=== PATIENT | female | born 1990 | race Asian ===

== ENCOUNTER 2020-10-16 08:56 | Outpatient (REF) | payer OTHER, SELFPAY ==
[2020-10-16 09:32] LABS: COVID-19 Test Negative (Negative)
== END 2020-10-16 08:57 | disposition home or self-care (01) ==
LOC: HO.EMPCOV 08:56
PROVIDERS: PCP Internal Medicine; Visit Provider Internal Medicine
DX: Z20.828 Contact with and (suspected) exposure to other viral communicable diseases (principal)
CPT/HCPCS: 87635; C9803

== ENCOUNTER 2020-11-13 13:20 | Outpatient (REF) | payer OTHER, SELFPAY ==
[2020-11-14 12:53] LABS: C. trachomatis RNA TMA NOT DETECTED (NOT DETECTED); N. gonorrhoeae RNA TMA NOT DETECTED (NOT DETECTED)
[2020-11-18 02:32] LABS: HPV mRNA E6/E7 rflx Not Detected (Not Detected)
== END 2020-11-13 13:21 | disposition home or self-care (01) ==
LOC: HO.LAB 13:20
PROVIDERS: PCP Internal Medicine; Visit Provider Advanced Practice Midwife
DX: Z12.4 Encounter for screening for malignant neoplasm of cervix (principal); N63.0 Unspecified lump in unspecified breast
CPT/HCPCS: 36415; 87491; 87591; 87624; 88142

== ENCOUNTER 2020-12-10 09:12 | Outpatient (REF) | payer OTHER, SELFPAY ==
[2020-12-10 09:29] LABS: COVID-19 Test Negative (Negative); IDNOW Serial# 55D5AD1C
== END 2020-12-10 09:13 | disposition home or self-care (01) ==
LOC: HO.EMPCOV 09:12
PROVIDERS: Visit Provider Internal Medicine
DX: Z20.822 Contact with and (suspected) exposure to COVID-19 (principal)
CPT/HCPCS: 36415; 87635; C9803

== ENCOUNTER 2020-12-15 11:04 | Outpatient (REF) | payer OTHER, SELFPAY ==
--- NOTE | ~2020-12-15 | XR_ITS ---
EXAMINATION: XR CHEST CLINICAL INFORMATION: Chest pain COMPARISON: None TECHNIQUE: 2 views of the chest were obtained. FINDINGS: No significant abnormality is noted involving the heart, lungs, mediastinum, bony thorax or soft tissues. XR/XR chest 2V IMPRESSION: Unremarkable examination.
--- NOTE | ~2020-12-15 | MM_ITS ---
EXAMINATION: MM DIAGNOSTIC DIGITAL BREAST TOMOSYNTHESIS, BILATERAL US DIAGNOSTIC ULTRASOUND BREAST, LEFT CLINICAL INFORMATION: Palpable fullness noted 3:00-5:00 position left breast at routine clinical exam. No known family history breast cancer. Age 30. No prior breast imaging. The lifetime risk of breast cancer based on the Tyrer-Cuzick Model is 10%. COMPARISON: None (current study represents initial baseline exam). TECHNIQUE: Digital breast tomosynthesis is performed in both the craniocaudal and mediolateral oblique views along with computer-aided detection (CAD). Synthesized 2D images are generated from the tomosynthesis. Ultrasound left breast is targeted to the area of clinical concern outer and lower breast. Grayscale imaging and color Doppler are performed without and with harmonics. Patient notes no palpable concern to direct attention at time of imaging. FINDINGS: The breasts are heterogeneously dense, which may obscure small masses (ACR BI-RADS breast composition Category c). Parenchymal pattern is unremarkable. There is no mass or architectural abnormality. No abnormal calcifications. The axilla and skin contours are unremarkable. Ultrasound left breast demonstrates no cystic or solid mass, architectural abnormality, or focal duct ectasia. Results are discussed with the patient at time of visit. MM/MM tomosynthesis diagnostic BI IMPRESSION: 1. No mammographic evidence of malignancy. 2. Normal targeted left breast ultrasound. ASSESSMENT: BI-RADS 1: Negative RECOMMENDATION: 1. Patient should be managed based on the clinical impression. If clinically indicated, further evaluation may be considered with surgical consult. Decision to proceed with biopsy should be based on clinical grounds and degree of clinical concern. 2. Otherwise, routine annual screening mammography, beginning age 40, or earlier as clinical risk factors warrant. This patient's information was entered into a reminder system with a target due date for their next mammogram.
== END 2020-12-15 11:05 | disposition home or self-care (01) ==
LOC: HO.MAMMO 11:04
PROVIDERS: PCP Internal Medicine; Visit Provider Internal Medicine
DX: N63.23 Unspecified lump in the left breast, lower outer quadrant (principal); R07.9 Chest pain, unspecified
CPT/HCPCS: 71046; 76642; 77062; 77066

== ENCOUNTER → 2021-02-11 15:18 | Outpatient (BNVA) | payer OTHER, SELFPAY | PROVIDERS: Visit Provider Advanced Practice Midwife | DX: Z30.09 Encounter for other general counseling and advice on contraception (principal) | CPT/HCPCS: 81025 ==

== ENCOUNTER 2021-03-11 20:40 | Emergency (ER) | payer OTHER, SELFPAY ==
[2021-03-11 21:14] VITALS: BP 122/82; PULSE 130; RESP 18; TEMP 38.7; O2SAT 96; BMI 24.7
--- NOTE | 2021-03-11 21:47 | ED_ITS ---
HPI - Fever General Chief Complaint: Fever Stated Complaint: fever for 5 days Time Seen by Provider: 03/11/21 21:19 Source: patient Mode of arrival: ambulatory History of Present Illness HPI Narrative: 30-year-old female presents with 5 days of continued fevers and states that she was started on treatment for a UTI 3 days ago, but states that it has not appeared to be working as she states that she is now having right- sided back discomfort, with difficulty bringing her fevers down with Tylenol and states that she has had chills as well as nausea and a decreased appetite. Otherwise, patient denies sore throat/cough/shortness of breath/chest pain. Related Data Previous Rx's Medication Instructions Recorded Lactobacillus 1 cap PO .once a day 30 Days #30 12/15/20 acidophil,plantar-Bifido no.7 15 cap billion cell capsule trazodone 50 mg tablet 50 mg PO BEDTIME PRN 90 Days #90 12/15/20 tab levonorgestrel 0.15 mg-ethinyl 1 tab PO DAILY #91 ea 02/11/21 estradiol 30 mcg tablets,3 mos pack(91) phenazopyridine 200 mg tablet 200 mg PO TID 2 Days #6 tab 03/09/21 sulfamethoxazole 800 1 tab PO BID 5 Days #10 tab 03/09/21 mg-trimethoprim 160 mg tablet ciprofloxacin HCl 500 mg PO Q12H 7 Days #14 tab 03/12/21 Allergies Allergy/AdvReac Type Severity Reaction Status Date / Time No Known Allergies Allergy Verified 03/09/21 20:18 [No Known Allergies*] Review of Systems Review of Systems: Pertinent positives and negatives as stated in HPI 10 point review of systems is otherwise negative. REPLACED BY [facility] Past Medical History Source: nursing notes reviewed Medical History Amenorrhea Chest pain Conjunctivitis Hx of conjunctivitis Insomnia Surgical History H/O colonoscopy Family History Family History Father No problems noted. Mother No problems noted. Daughter No problems noted. Social History Social History Alcohol intake: never Smoking Status: Never smoker Smoked in Last 30 Days: No Use of substances other than those prescribed or required for medical reasons: No Advance Directives: No Advance Directives Information Provided: Yes Gender identity: female Physical Exam Vital Signs: Vital Signs: Last Vital Signs Temp 99.3 F 03/11/21 23:46 Pulse 106 H 03/11/21 23:46 Resp 16 03/11/21 23:46 BP 100/69 03/11/21 23:46 Pulse Ox 96 03/11/21 23:46 Body Mass Index 24.7 VITAL SIGNS: Reviewed. GENERAL: Well developed, well nourished, in no acute distress. HEAD: Normocephalic/atraumatic, EYES: PERRLA, EOMI EARS: Ext canals without abnormality, TMs non-bulging and non-erythematous NOSE: Nares patent bilateral OROPHARYNX: no oral lesions noted, posterior pharynx clear NECK: Supple, no adenopathy LUNGS: Normal breath sounds. No adventitious sounds or accessory muscle use. SpO2<96> CARDIOVASCULAR: Regular rate and rhythm without noted murmurs ABDOMEN: Soft, non-tender, non-distended with bowel sounds, right CVA tenderness SKIN: Inspection of the skin reveals no rashes NEUROLOGIC: Alert and oriented x 4. Course Course Course Narrative: 30-year-old female with history and clinical presentation consistent with likely pyelonephritis and suspect that current antibiotic regimen is not covering the inciting organism. Will switch antibiotics, provide antinausea medication, p.o. challenge as well as basic labs with urinalyses. Review of all investigations in re-evaluation findings most consistent with pyelonephritis, no nausea or vomiting noted during her stay, patient feeling much better and fever has resolved. Urinalysis is grossly positive for infection and will empirically treat her for mild pyelonephritis and she has been informed to follow up with the primary care provider. MDM - Fever Lab Data Result diagrams: 03/11/21 21:44 03/11/21 21:44 Labs: Lab Results 03/11/21 03/11/21 03/11/21 Range/Units 21:44 21:44 21:44 WBC 12.8 H (4.8-10.8) X10*3/uL RBC 4.86 (4.20-5.50) X10*6/uL Hgb 14.1 (12.0-16.0) g/dl Hct 41.0 (37-47) % MCV 84.4 (80-98) fL MCH 29.0 (27.0-33.0) pg MCHC 34.4 (31.0-35.0) g/dl RDW 12.0 (11.0-16.0) % Plt Count 285 (160-400) X10*3/uL MPV 9.7 (9.4-12.3) fL Immature Gran % (Auto) 0.2 (0.0-0.4) % Neut % (Auto) 83.8 H (45-73) % Lymph % (Auto) 7.0 L (20-40) % Antelope % (Auto) 8.8 (2-11) % Eos % (Auto) 0.0 (0-4) % Baso % (Auto) 0.2 (0-2) % Lymph # (Auto) 0.9 L (1.2-4.9) X10*3/uL Antelope # (Auto) 1.1 (0.1-1.2) X10*3/uL Eos # (Auto) 0.0 (0.0-0.4) X10*3/uL Baso # (Auto) 0.0 (0.0-0.2) X10*3/uL Abs Immat Gran (auto) 0.03 (0.00-0.03) X10*3/uL Absolute Neuts (auto) 10.7 H (2.0-8.3) X10*3/uL Absolute Nucleated RBC 0.000 (0.0-0.012) X10*3/uL Nucleated RBC % (auto) 0.0 (0.0-0.2) /100WBC Sodium 133 L (135-145) mmol/L Potassium 3.6 (3.3-5.1) mmol/L Chloride 98 (96-108) mmol/L Carbon Dioxide 22 (22-29) mmol/L Anion Gap 17 (12-20) BUN 8 L (9-16) mg/dL Creatinine 1.06 (0.5-1.4) mg/dL Estim Creat Clear Calc 66.4 Estimated GFR > 60 Random Glucose 132 H (60-115) mg/dL Lactic Acid (0.5-2.0) mmol/L Calcium 9.2 (8.4-10.2) mg/dL Total Bilirubin 0.7 (0.0-1.0) mg/dL AST 31 (5-31) U/L ALT 22 (0-31) U/L Alkaline Phosphatase 71 (39-117) U/L Total Protein 8.4 H (6.5-8.0) g/dL Albumin 4.6 (3.5-5.0) g/dL Urine Color Urine Appearance Urine pH (5.0-8.0) Ur Specific Brandywine (1.005-1.025) Urine Protein (NEG-TRACE) MG/DL Urine Glucose (UA) (NEG) MG/DL Urine Ketones (NEG) MG/DL Urine Blood (NEG) Urine Nitrite (NEG) Ur Leukocyte Esterase (NEG) Urine RBC (0) /HPF Urine WBC (0-4) /HPF Ur Squamous Epith Cells /LPF Urine Bacteria /LPF Urine Test (NEGATIVE) COVID-19 (GAGE) Negative (Negative) COVID-19 Clin Com See Note 03/11/21 03/11/21 03/11/21 Range/Units 22:19 23:28 23:28 WBC (4.8-10.8) X10*3/uL RBC (4.20-5.50) X10*6/uL Hgb (12.0-16.0) g/dl Hct (37-47) % MCV (80-98) fL MCH (27.0-33.0) pg MCHC (31.0-35.0) g/dl RDW (11.0-16.0) % Plt Count (160-400) X10*3/uL MPV (9.4-12.3) fL Immature Gran % (Auto) (0.0-0.4) % Neut % (Auto) (45-73) % Lymph % (Auto) (20-40) % Antelope % (Auto) (2-11) % Eos % (Auto) (0-4) % Baso % (Auto) (0-2) % Lymph # (Auto) (1.2-4.9) X10*3/uL Antelope # (Auto) (0.1-1.2) X10*3/uL Eos # (Auto) (0.0-0.4) X10*3/uL Baso # (Auto) (0.0-0.2) X10*3/uL Abs Immat Gran (auto) (0.00-0.03) X10*3/uL Absolute Neuts (auto) (2.0-8.3) X10*3/uL Absolute Nucleated RBC (0.0-0.012) X10*3/uL Nucleated RBC % (auto) (0.0-0.2) /100WBC Sodium (135-145) mmol/L Potassium (3.3-5.1) mmol/L Chloride (96-108) mmol/L Carbon Dioxide (22-29) mmol/L Anion Gap (12-20) BUN (9-16) mg/dL Creatinine (0.5-1.4) mg/dL Estim Creat Clear Calc Estimated GFR Random Glucose (60-115) mg/dL Lactic Acid 1.2 (0.5-2.0) mmol/L Calcium (8.4-10.2) mg/dL Total Bilirubin (0.0-1.0) mg/dL AST (5-31) U/L ALT (0-31) U/L Alkaline Phosphatase (39-117) U/L Total Protein (6.5-8.0) g/dL Albumin (3.5-5.0) g/dL Urine Color ROASLIO Urine Appearance HAZY Urine pH 6.5 (5.0-8.0) Ur Specific Brandywine 1.020 (1.005-1.025) Urine Protein 2+ H (NEG-TRACE) MG/DL Urine Glucose (UA) NEG (NEG) MG/DL Urine Ketones 5 (NEG) MG/DL Urine Blood TRACE (NEG) Urine Nitrite POS H (NEG) Ur Leukocyte Esterase 2+ H (NEG) Urine RBC 5-9 H (0) /HPF Urine WBC 50-75 H (0-4) /HPF Ur Squamous Epith Cells 1+ /LPF Urine Bacteria 4+ /LPF Urine Test NEGATIVE (NEGATIVE) COVID-19 (GAGE) (Negative) COVID-19 Clin Com Discharge Plan Discharge Clinical Impression: Pyelonephritis Patient Disposition: Home, Self-Care Instructions: Urinary Tract Infection in Women (ED), Kidney Infection (ED) Additional Instructions: 1. Tylenol 1000 mg, orally, every 6 hours as needed for temperatures greater than 100.4. Do not exceed 4000 mg within 24 hours. 2. Ibuprofen 400 mg, orally with milk or food, every 6 hours as needed for temperatures greater than 100.4. 3. STOP taking sulfamethoxazole trimethoprim (Bactrim ds). 4. START taking ciprofloxacin as directed on the prescription. CAUTION: This m edication may affect your control so exercise additional precautions for control. 5. Continue to drink plenty of water and your appetite should improve. 6. Follow-up with your primary care provider in the next 1-2 days for re- evaluation and follow-up on the urine culture from your ER visit today. Do not hesitate to return to the emergency room for any acute worsening of your symptoms. Prescriptions: New ciprofloxacin HCl 500 mg tablet 500 mg PO Q12H 7 Days Qty: 14 RF: 0 No Action up4 Probiotics Adult 15 billion cell capsule 1 cap PO .once a day 30 Days Qty: 30 RF: 3 trazodone 50 mg tablet 50 mg PO BEDTIME PRN (Reason: sleep) 90 Days Qty: 90 RF: 1 sulfamethoxazole-trimethoprim [Bactrim DS] 800-160 mg tablet 1 tab PO BID 5 Days Qty: 10 RF: 0 phenazopyridine [Pyridium] 200 mg tablet 200 mg PO TID 2 Days Qty: 6 RF: 0 levonorgestrel-ethinyl estrad 0.15 mg-30 mcg (91) tablets,dose pack,3 month 1 tab PO DAILY Qty: 91 RF: 4 Referrals: Physician,Unknown [Primary Care Provider] - 2 days
[2021-03-11 21:57] LABS: MANUAL DIFF FLAG NO
[2021-03-11 22:01] LABS: Basophils Percent Auto 0.2 % (0-2); Hemoglobin 14.1 g/dl (12.0-16.0); Imm Gran Abs Auto 0.03 X10*3/uL (0.00-0.03); Imm Gran Pct Auto 0.2 % (0.0-0.4); Lymphocytes Absolute Auto 0.9 X10*3/uL (1.2-4.9); Mean Corpuscular HGB Conc 34.4 g/dl (31.0-35.0); Mean Corpuscular Volume 84.4 fL (80-98); Mean Platelet Volume 9.7 fL (9.4-12.3); Monocytes Absolute Auto 1.1 X10*3/uL (0.1-1.2); Monocytes Percent Auto 8.8 % (2-11); Neutrophils Absolute Auto 10.7 X10*3/uL (2.0-8.3); Neutrophils Percent Auto 83.8 % (45-73); Platelet Count 285 X10*3/uL (160-400); Red Blood Count 4.86 X10*6/uL (4.20-5.50); White Blood Count 12.8 X10*3/uL (4.8-10.8)
[2021-03-11 22:15] LABS: COVID-19 Test Negative (Negative); IDNOW Serial# 08D9AD1C
[2021-03-11 22:22] LABS: Alanine Aminotransferase 22 U/L (0-31); Albumin Level 4.6 g/dL (3.5-5.0); Alkaline Phosphatase 71 U/L (39-117); Anion Gap 17 (12-20); Aspartate Amino Transferase 31 U/L (5-31); Bilirubin Total 0.7 mg/dL (0.0-1.0); Blood Urea Nitrogen 8 mg/dL (9-16); Calcium 9.2 mg/dL (8.4-10.2); Carbon Dioxide 22 mmol/L (22-29); Chloride 98 mmol/L (96-108); Creatinine Clr Calc Pharmacy 66.4; Estimated Glomerular Filt Rate > 60; Glucose Random 132 mg/dL (60-115); Potassium 3.6 mmol/L (3.3-5.1); Sodium 133 mmol/L (135-145); Total Protein 8.4 g/dL (6.5-8.0)
[2021-03-11] MEDS: Acetaminophen 325 MG TABLET 975 MG PO (22:31)
[2021-03-11] MEDS: levoFLOXacin 500 MG TABLET PO (22:32)
[2021-03-11 22:47] LABS: Lactic Acid 1.2 mmol/L (0.5-2.0)
[2021-03-11 23:26] VITALS: BP 118/65; PULSE 112; RESP 18; TEMP 37.4; O2SAT 96
[2021-03-11 23:35] LABS: Appearance Urine HAZY; Color Urine AMBER; Glucose Urine UA NEG (NEG); Leukocyte Esterase Urine 2+ (NEG); Nitrite Urine POS (NEG); PH 6.5 (5.0-8.0); UACC Culture Trigger YES; Urine Blood TRACE (NEG); Urine Ketones 5 MG/DL (NEG); Urine Protein 2+ MG/DL (NEG-TRACE)
[2021-03-11 23:38] LABS: UPreg QC Valid YES; Urine Pregnancy NEGATIVE (NEGATIVE)
[2021-03-11 23:40] LABS: Bacteria Urine 4+ /LPF; Squamous Epithelial Cell Urine 1+ /LPF; WBC Urine 50-75 /HPF (0-4)
[2021-03-11 23:46] VITALS: BP 100/69; PULSE 106; RESP 16; TEMP 37.4; O2SAT 96
== END 2021-03-12 00:34 | disposition home or self-care (01) ==
PROVIDERS: Emergency Provider Student in an Organized Health Care Education/Training Program
DX: N12 Tubulo-interstitial nephritis, not specified as acute or chronic (principal); R50.9 Fever, unspecified; Z20.822 Contact with and (suspected) exposure to COVID-19; Z79.899 Other long term (current) drug therapy
CPT/HCPCS: 36415; 80053; 81001; 81003; 81025; 83605; 85025; 87040; 87086; 87088; 87186; 87635; 99284

== ENCOUNTER 2021-12-22 10:31 | Outpatient (REF) | payer OTHER, SELFPAY ==
[2021-12-22 10:48] LABS: MANUAL DIFF FLAG NO
[2021-12-22 11:26] LABS: Basophils Percent Auto 0.7 % (0-2); Eosinophils Absolute Auto 0.1 X10*3/uL (0.0-0.4); Eosinophils Percent Auto 1.5 % (0-4); Hematocrit 38.5 % (37.0-47.0); Imm Gran Abs Auto 0.01 X10*3/uL (0.00-0.03); Imm Gran Pct Auto 0.2 % (0.0-0.4); Lymphocytes Absolute Auto 1.5 X10*3/uL (1.2-4.9); Lymphocytes Percent Auto 26.9 % (20-40); Mean Corpuscular HGB Conc 33.8 g/dl (31.0-35.0); Mean Corpuscular Hemoglobin 29.8 pg (27.0-33.0); Mean Corpuscular Volume 88.3 fL (80.0-98.0); Mean Platelet Volume 10.2 fL (9.4-12.3); Monocytes Absolute Auto 0.3 X10*3/uL (0.1-1.2); Monocytes Percent Auto 4.6 % (2-11); Neutrophils Absolute Auto 3.6 x10*3/uL (2.0-8.3); Neutrophils Percent Auto 66.1 % (45-73); Platelet Count 427 X10*3/uL (160-400); Red Blood Count 4.36 X10*6/uL (4.20-5.50); Red Cell Distribution Width 13.2 % (11.0-16.0); White Blood Count 5.4 X10*3/uL (4.8-10.8)
[2021-12-22 11:59] LABS: Alanine Aminotransferase 11 U/L (0-31); Albumin Level 4.6 g/dL (3.5-5.0); Alkaline Phosphatase 54 U/L (39-117); Anion Gap 13 (12-20); Aspartate Amino Transferase 13 U/L (5-31); Bilirubin Total 0.7 mg/dL (0.0-1.0); Blood Urea Nitrogen 10 mg/dL (9-16); Calcium 9.8 mg/dL (8.4-10.2); Carbon Dioxide 25 mmol/L (22-29); Chloride 105 mmol/L (96-108); Cholesterol 214 mg/dL; Estimated Glomerular Filt Rate > 60; Glucose Fasting 94 mg/dL (60-99); HDL Cholesterol 36 mg/dL; LDL Cholesterol Calculated 157 mg/dl; Potassium 4.3 mmol/L (3.3-5.1); Sodium 139 mmol/L (135-145); Triglycerides 107 mg/dL
== END 2021-12-22 10:32 | disposition home or self-care (01) ==
LOC: HO.LAB 10:31
PROVIDERS: PCP Internal Medicine; Visit Provider Internal Medicine
DX: Z00.00 Encounter for general adult medical examination without abnormal findings (principal); E78.5 Hyperlipidemia, unspecified; D64.9 Anemia, unspecified; R63.4 Abnormal weight loss
CPT/HCPCS: 36415; 80053; 80061; 84443; 85025

== ENCOUNTER 2022-02-03 11:03 | Outpatient (REF) | payer OTHER, SELFPAY ==
[2022-02-03 12:28] LABS: Appearance Urine CLEAR; Color Urine YELLOW; Glucose Urine UA NEG (NEG); Leukocyte Esterase Urine NEG (NEG); Nitrite Urine NEG (NEG); PH 5.5 (5.0-8.0); Specific Gravity - Urine >= 1.030 (1.005-1.025); Urine Blood NEG (NEG); Urine Ketones NEG (NEG); Urine Protein NEG (NEG-TRACE)
== END 2022-02-03 11:04 | disposition home or self-care (01) ==
LOC: HO.LAB 11:03
PROVIDERS: PCP Internal Medicine; Visit Provider Internal Medicine
DX: R30.0 Dysuria (principal)
CPT/HCPCS: 81003

== ENCOUNTER 2022-05-21 11:52 | Outpatient (REF) | payer OTHER, SELFPAY ==
[2022-05-22 14:54] LABS: BV Int Neg Control Negative (Negative); BV Int Pos Control Positive (Positive)
[2022-05-22 16:50] LABS: CT PCR NOT DETECTED (Not Detect.); NG PCR NOT DETECTED (Not Detect.)
[2022-05-28 09:07] LABS: HPV mRNA E6/E7 rflx Not Detected (Not Detected)
== END 2022-05-21 11:53 | disposition home or self-care (01) ==
LOC: HO.LAB 11:52
PROVIDERS: Visit Provider Advanced Practice Midwife
DX: Z01.419 Encounter for gynecological examination (general) (routine) without abnormal findings (principal); Z11.3 Encounter for screening for infections with a predominantly sexual mode of transmission; Z11.51 Encounter for screening for human papillomavirus (HPV)
CPT/HCPCS: 87480; 87491; 87510; 87591; 87624; 87660; 88142

== ENCOUNTER 2022-12-29 08:47 | Outpatient (REF) | payer OTHER, SELFPAY ==
[2022-12-29 10:40] LABS: Alanine Aminotransferase 13 U/L (0-31); Albumin Level 4.4 g/dL (3.5-5.0); Alkaline Phosphatase 48 U/L (39-117); Anion Gap 13 (12-20); Aspartate Amino Transferase 13 U/L (5-31); Bilirubin Total 0.7 mg/dL (0.0-1.0); Blood Urea Nitrogen 12 mg/dL (9-16); Calcium 9.6 mg/dL (8.4-10.2); Carbon Dioxide 22 mmol/L (22-29); Chloride 109 mmol/L (96-108); Cholesterol 192 mg/dL; Estimated Glomerular Filt Rate > 60; Glucose Fasting 90 mg/dL (60-99); HDL Cholesterol 43 mg/dL; LDL Cholesterol Calculated 124 mg/dl; Potassium 4.2 mmol/L (3.3-5.1); Sodium 140 mmol/L (135-145); Total Protein 7.3 g/dL (6.5-8.0); Triglycerides 127 mg/dL
[2022-12-29 10:59] LABS: Thyroid Stimulating Hormone 1.09 uIU/mL (0.32-4.0)
== END 2022-12-29 08:48 | disposition home or self-care (01) ==
LOC: HO.LAB 08:47
PROVIDERS: PCP Internal Medicine; Visit Provider Internal Medicine
DX: Z00.00 Encounter for general adult medical examination without abnormal findings (principal); E66.3 Overweight; E78.5 Hyperlipidemia, unspecified
CPT/HCPCS: 36415; 80053; 80061; 84443

== ENCOUNTER 2023-01-28 14:52 | Outpatient (REF) | payer OTHER, SELFPAY ==
--- NOTE | ~2023-01-28 | XR_ITS ---
EXAMINATION: XR KNEE, LEFT CLINICAL INFORMATION: Pain. COMPARISON: None available. TECHNIQUE: AP and lateral views of the left knee. FINDINGS: Bones and soft tissues are normal. No fracture or joint effusion. Alignment is anatomic. Joint spaces are well maintained. No abnormal soft tissue calcification. XR/XR knee LT 2V IMPRESSION: Normal left knee.
== END 2023-01-28 14:53 | disposition home or self-care (01) ==
LOC: HO.LAB 14:52
PROVIDERS: PCP Internal Medicine; Visit Provider Internal Medicine
DX: M25.562 Pain in left knee (principal)
CPT/HCPCS: 73560

== ENCOUNTER 2023-02-04 05:30 | Outpatient (REF) | payer OTHER, SELFPAY ==
--- NOTE | ~2023-02-04 | XR_ITS ---
EXAMINATION: XR KNEE AP STANDING XR KNEE, LEFT AXIAL CLINICAL INFORMATION: Pain. COMPARISON: Left knee dated 02/07/2023. TECHNIQUE: AP bilateral standing view of the knees was obtained. An axial view of the left knee was obtained. FINDINGS: Bones and soft tissues are normal. No fracture or joint effusion. Alignment is anatomic. Joint spaces are well maintained. No abnormal soft tissue calcification. XR/XR knee standing BI IMPRESSION: Normal knees.
--- NOTE | ~2023-02-04 | XR_ITS ---
EXAMINATION: XR KNEE AP STANDING XR KNEE, LEFT AXIAL CLINICAL INFORMATION: Pain. COMPARISON: Left knee dated 02/07/2023. TECHNIQUE: AP bilateral standing view of the knees was obtained. An axial view of the left knee was obtained. FINDINGS: Bones and soft tissues are normal. No fracture or joint effusion. Alignment is anatomic. Joint spaces are well maintained. No abnormal soft tissue calcification. XR/XR knee LT 1V IMPRESSION: Normal knees.
== END 2023-02-04 05:31 | disposition home or self-care (01) ==
LOC: HO.HOSX 05:30
PROVIDERS: Visit Provider Physician Assistant
DX: M94.262 Chondromalacia, left knee (principal); M23.92 Unspecified internal derangement of left knee; M25.561 Pain in right knee; Z79.899 Other long term (current) drug therapy
CPT/HCPCS: 73560; 73565

== ENCOUNTER 2023-02-28 12:41 | Outpatient (REF) | payer OTHER, SELFPAY ==
--- NOTE | ~2023-02-28 | MR_ITS ---
EXAMINATION: MR KNEE WITHOUT CONTRAST, LEFT CLINICAL INFORMATION: Chondromalacia, left knee. Internal derangement. COMPARISON: None available. TECHNIQUE: MRI of the knee without contrast was performed using routine sequences on a high-field scanner. FINDINGS: MENISCI: Medial Meniscus: Intact Lateral Meniscus: Intact LIGAMENTS: Cruciate: Intact Collateral: Intact EXTENSOR MECHANISM: Quadriceps and patellar tendons are intact. Surrounding fat pads are normal. Retinacula are intact. Mild edema signal is evident within the quadriceps fat pad and along the medial, odd facet of the patella. ARTICULAR CARTILAGE/BONE: Patellofemoral Compartment: Articular cartilage appears well-preserved. Normal trochlear morphology. There is a plica crossing the medial trochlear facet measuring 3 mm in thickness without significant surrounding soft tissue edema or underlying chondromalacia. Medial Compartment: Normal Lateral Compartment: Normal JOINT FLUID AND BURSAE: Trace joint fluid, within normal limits. No fluid within the Reyes's cyst. MR/MR knee LT wo con IMPRESSION: 1. A borderline thickened medial patellar plica covers the superior aspect of the medial trochlear facet. No surrounding soft tissue edema signal or appreciable underlying chondromalacia to confirm plica syndrome. 2. Mild edema signal within the quadriceps fat pad. This is relatively mild and likely subclinical, though can be associated with quadriceps fat pad impingement. 3. Otherwise unremarkable MRI of the knee. Intact menisci. No appreciable chondromalacia.
== END 2023-02-28 12:42 | disposition home or self-care (01) ==
LOC: HO.MRI 12:41
PROVIDERS: PCP Internal Medicine; Visit Provider Physician Assistant
DX: M23.92 Unspecified internal derangement of left knee (principal); M94.262 Chondromalacia, left knee
CPT/HCPCS: 73721

== ENCOUNTER → 2023-03-14 12:18 | Outpatient (BNVA) | payer OTHER, SELFPAY | PROVIDERS: PCP Internal Medicine; Visit Provider Physician Assistant ==

== ENCOUNTER 2023-03-22 15:00 | Outpatient (RCR) | payer OTHER, SELFPAY ==
--- NOTE | 2023-02-18 09:04 | MHC.PT.EP ---
[facility] [place] Office [place] Office [place] Office [address] Jose Ramon Dominguez [address] [phone] F: [phone] F: [phone] F: [phone] F: [phone] Physical Therapy Plan of Care Date of Evaluation: Date of Surgery: NA Diagnosis: L KNEE CHONDROMALACIA, L KNEE INTERNAL DERANGEMENT Assessment: Pt IS 32 YO F REFERRED TO PT FROM [facility]THO ([facility]) WITH CHONDROMALACIA PATELLA/INTERNAL DERANGEMENT L KNEE. PRESENTS WITH LIMITED L KNEE FLEXION AND L LE WEAKNESS WITH C/O PAIN AND LIMITED STAIR NEGOTIATION. SHOULD BENEFIT FROM PT TO ADDRESS THESE ISSUES Frequency and Duration: The patient will be seen 2X/WK X 4 WKS Short Term Goals: 1. INCREASED AWARENESS KNEE CARE 2. L KNEE FLEXION TO 120 3. IMPROVED STAIR NEGOTIATION REPORTED Shipping Inspector Goals: 1. L KNEE ROM 0-130 2. I HEP WITH DC EX PLAN 3. DECREASED L KNEE PAIN AT LEAST 50% WITH ADLS 4. IMPROVED LEFI (55/80 SOC) Treatment Plan: Modalities to reduce pain, spasms and effusion. Manual therapy to restore motion and function. Therapeutic exercise to improve strength and flexibility. Neuromuscular re-education for posture and balance. Therapeutic activities to return to functional activities of daily living. Electronically signed by: MOR NOEL PT Please sign and return to therapist. Thank you for your referral.
--- NOTE | 2023-03-22 16:11 | MHC.PT.DC ---
[facility] [place] Office [place] Office [place] Office [address] Jose Ramon Dominguez 140 [facility] [phone] F: [phone] F: [phone] F: [phone] F: [phone] Physical Therapy Discharge Report Diagnosis: CHONDROMALACIA Date of Surgery: NA Date of Evaluation: 02/16/23 Date of Discharge: 03/22/23 Treatments to Date: 5 Cancellations to Date: No Shows to Date: Discharge Status: Achieved Goals Improved Function Independent with HEP Discharge Summary: HAS MET PT GOALS Electronically signed by: MOR NOEL PT Please sign and return to therapist. Thank you for your referral.
== END 2023-03-22 16:12 | disposition home or self-care (01) ==
LOC: HO.PT 15:00
PROVIDERS: PCP Internal Medicine; Visit Provider Physician Assistant
DX: M25.562 Pain in left knee (principal)
CPT/HCPCS: 97110; 97140; 97161; 97530

== ENCOUNTER → 2023-04-15 14:39 | Outpatient (BNVA) | payer OTHER, SELFPAY | PROVIDERS: PCP Internal Medicine; Visit Provider Nurse Practitioner Family ==

== ENCOUNTER 2023-05-11 14:57 | Outpatient (REF) | payer OTHER, SELFPAY | END 2023-05-11 14:58 | disposition home or self-care (01) | LOC: HO.MRI 14:57 | PROVIDERS: Visit Provider Nurse Practitioner Family | DX: R51.9 Headache, unspecified (principal); R20.2 Paresthesia of skin | CPT/HCPCS: 70551 ==

== ENCOUNTER → 2023-05-16 13:50 | Outpatient (REF) | payer OTHER, SELFPAY | LOC: HO.SL 13:50 | PROVIDERS: PCP Internal Medicine; Visit Provider Nurse Practitioner Family | DX: G47.9 Sleep disorder, unspecified (principal); R06.83 Snoring; G47.19 Other hypersomnia | CPT/HCPCS: 95806 ==

== ENCOUNTER → 2023-05-16 14:02 | Outpatient (BNV) | payer OTHER, SELFPAY | PROVIDERS: PCP Internal Medicine; Visit Provider Psychiatry & Neurology Neurology | DX: R06.83 Snoring (principal) | CPT/HCPCS: 95806 ==

== ENCOUNTER 2023-06-14 13:14 | Outpatient (AMB) | payer OTHER, SELFPAY ==
--- NOTE | 2023-06-14 13:36 | A.OFFVIS_ITS ---
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 Intake Note: concerns with weight gain Artificial Plastic Eye Maker Required: No Information Interpreted: non-clinical & clinical Seafood Preparer: Seafood Preparer Present (Michael) Allergies environmental allergies Allergy (Unknown, Verified 06/14/23 13:41) Unknown Medication List - Last Reconciled 06/14/23 by Shannon Carrion CNM alum-mag hydroxide-simeth 400-400-40 mg/5 mL (Maalox Maximum Strength) 10 mL PO TID PRN 7 days levonorgestrel-ethinyl estrad 0.15 mg-30 mcg (91) 1 tab PO DAILY naproxen 500 mg PO BID omeprazole 20 mg PO DAILY 14 days rizatriptan 5 - 10 mg (0.5 - 1 x 10 mg) PO Q2H PRN 21 days Is last menstrual period known: No (not sure) Post menopausal: No HPI 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 she is on the control pills that a lower to have a period every 3 months and they are working well for her. She wants to stay on them she is not worried about STDs but is open to testing.. [facility] [place] Medical History Amenorrhea Chest pain Concern about STD in female without diagnosis Conjunctivitis Constipation by delayed colonic transit Dysuria CELIA (generalized anxiety disorder) Hx of conjunctivitis Insomnia Moderate recurrent major depression Physical exam Pure hypercholesterolemia Sore throat Weight loss Surgical History H/O colonoscopy Family History Father No problems noted. Mother No problems noted. Daughter No problems noted. Social History (Reviewed 06/14/23 @ 13:42 by NOA Kaplan Housing: Apartment Alcohol intake: never Patient Tobacco Use Status: Never used Tobacco e-Cigarette/Vaping Use: Never Used Second Hand Smoke Exposure: No service: No Current occupational status: unemployed Current occupational exposures/hazards: No Gender identity: Female Cognitive needs: No Hearing needs: No Vision needs: Yes (glasses) Female Reproductive History Menstrual Age of Menarche: 11 Duration of menses: 3-5 days control method: pills Total pregnancies: 1 Full term: 1 Number of Living Children: 1 Date of last pap smear: 05/25/22 (negative) Physical Exam Vital Signs: Last Vital Signs BP 116/70 06/14/23 13:39 BMI result Body Mass Index 28.3 Const General: healthy appearing, comfortable, no acute distress, well developed and alert Nutritional Appearance: average body habitus Orientation/consciousness: patient oriented x3 Limitations: no limitations HEENT Head: Yes normocephalic Neck Neck: Yes normal visual inspection Chest Chest palpation & inspection: normal inspection of the chest Breast/axilla inspection: normal inspection of the breasts and normal inspection of the axillae Breast/axilla palpation: normal palpation of the breasts and normal palpation of the axillae Resp Effort & Inspection: normal respiratory effort GI Inspection: Yes normal to inspection, No Abdominal wall edema and No distended Palpation (GI): Soft to palpation and nontender Other: cervix does appear scarred as if status post LEEP. Confirmed with patient she has never had a procedure on her cervix. She delivered vaginally 8 years ago at [facility] and she does tell me it was of long labor and she did push for a long time last year's Pap was negative I am probably seeing the effects of of cervical laceration consistent with delivery. General: Yes bladder normal to palpation External Female Exam: normal external appearance and normal appearance of the urethra Speculum Exam - Vagina: normal appearance of the vagina, normal palpation and normal vaginal discharge Speculum Exam - Cervix: normal appearance of the cervix, normal palpation and nontender Bimanual exam- vagina & uterus: normal bimanual exam, normal palpation, uterine size normal, bladder normal to palpation, consistency normal, normal palpation, uterine mobility normal, uterine shape normal, No Cervical tenderness present, non-tender and no cervical motion tenderness Bimanual Exam- Adnexa, other: normal adnexae, no masses, normal and No adnexal tenderness Neuro General: patient oriented x3 Results Reviewed Results Reviewed: Name:?Shannon Kim Age/Sex: 31/F Attending: Shannon Carrion CNM : 1990 Submitted by: Shannon Carrion CNM Copies to: MR #: [id number] ? Status: DEP REF Collected: 05/21/22 Location: .LAB Received: 05/25/22 Interpretation Satisfactory for evaluation. Negative for intraepithelial lesion or malignancy. HPV mRNA E6/E7:? NOT DETECTED This assay detects E6/E7 viral messenger RNA (mRNA) from 14 high-risk HPV types (16, 18, 31, 33, 35, 39, 45, 51, 52, 56, 58, 59, 66, 68) HPV testing performed by [facility], [place], [place].? See reference laboratory portion of the EMR for entire report. Clinical Information LMP: 05/12/22 Previous PAP test: 11/14/20, WNL Material Received ThinPrep-Cervical Electronically Signed By: Shanti Cali ? 05/31/22 1408 The Pap Test is a screening procedure with the inherent possibility of both false negative and false positive results.? Results should be interpreted in the context of historic and current clinical find Assessment & Plan Assessment & Plan (1) Cervical cancer screening: Comment: 11/13/2020 Pap equals negative with negative HPV however cervix on 716 22 either with marked ectropion or status post LEEP patient says she does not remember if she had any procedure during exams in [place]. So Pap done.= neg w neg HPV. Code(s): Z12.4 - Encounter for screening for malignant neoplasm of cervix (2) Well woman exam with routine gynecological exam: Code(s): Z01.419 - Encounter for gynecological examination (general) (routine) without abnormal findings (3) Counseling for control, oral contraceptives: Code(s): Z30.09 - Encounter for other general counseling and advice on contraception (4) Migraine with aura: Comment: flashing lights, tingling in fingers and feet. 06/14/2023 discussed with the patient immediately after the visit when this was noted in the chart. She is not clear what an aura is I asked her to discuss with Neurology was sent when she sees them next month and if they recommend stopping the OCPs ( combination) then she will call here and we will come up with another contraceptive plan for her. she does not perceive a connection between the headaches and the control pills. Code(s): G43.109 - Migraine with aura, not intractable, without status migrainosus Plan -----Discussed in this visit the following: healthy balanced diet, regular and consistent exercise, getting recommended health screens, doing the best she can for her particular health concerns, kegel exercises, pap smear screening and followup recommendations, mammography screening and SBE, normal changes in cycles in her life stage--- . reviewed weight gain and how choice of snacks during the day can contribute to weight gain and role of carbs versus protein snacks. Also discussed recommended exercise. Also discussed how happy she is on the pills she does like the pills and she is doing fine with them and not having any problems at all discussed that sometimes breakthrough bleeding can occur her residential through a 3 month pill pack when somebody is been on them for a while and to be ready if that happens. After the visit noted that further down in her problem list there was an entry for migraine with aura. call the patient to I just left the office and inquired about this and she did not know what an aura was and I explained it and ask her to discuss this further with Neurology and if she needs to stop the pills we will stop them and give her something else but that will take a further visit. she did not perceive a connection between the control pills and her headaches because she had been on the pills for 2 years and the headache was new. Orders: Orders Bacterial Vaginosis Panel Today Z01.419 - Encounter for gynecological examination (general) (routine) without abnormal findings CT NG by PCR Today Z01.419 - Encounter for gynecological examination (general) (routine) without abnormal findings Medications: Refilled levonorgestrel-ethinyl estrad 0.15 mg-30 mcg (91) 1 tab PO DAILY 91 ea 4RF Coding Level of Care Code Est Pt Prev Care 18-39y(75246) Diagnoses Cervical cancer screening Z12.4 Well woman exam with routine gynecological exam Z01.419 Counseling for control, oral contraceptives Z30.09 Migraine with aura G43.109
[2023-06-14 13:39] VITALS: BP 116/70; BMI 28.3
== END 2023-06-14 14:41 | disposition home or self-care (01) ==
LOC: HO.HWS 13:14
PROVIDERS: PCP Internal Medicine; Visit Provider Advanced Practice Midwife
DX: Z12.4 Encounter for screening for malignant neoplasm of cervix (principal); Z01.419 Encounter for gynecological examination (general) (routine) without abnormal findings; Z30.09 Encounter for other general counseling and advice on contraception; G43.109 Migraine with aura, not intractable, without status migrainosus
CPT/HCPCS: 99395

== ENCOUNTER 2023-06-14 13:14 | Outpatient (REF) | payer OTHER, SELFPAY ==
[2023-06-14 17:44] LABS: CT PCR NOT DETECTED (Not Detect.); NG PCR NOT DETECTED (Not Detect.)
[2023-06-15 12:48] LABS: BV Int Neg Control Negative (Negative); BV Int Pos Control Positive (Positive)
== END 2023-06-14 13:15 | disposition home or self-care (01) ==
LOC: HO.LNP 13:14
PROVIDERS: PCP Internal Medicine; Visit Provider Advanced Practice Midwife
DX: Z01.419 Encounter for gynecological examination (general) (routine) without abnormal findings (principal); G43.109 Migraine with aura, not intractable, without status migrainosus; Z20.2 Contact with and (suspected) exposure to infections with a predominantly sexual mode of transmission; Z79.899 Other long term (current) drug therapy
CPT/HCPCS: 0353U; 87480; 87510; 87660

== ENCOUNTER 2023-10-06 11:00 | Outpatient (AMB) | payer OTHER, SELFPAY ==
[2023-10-06 11:11] VITALS: BP 122/82; PULSE 101; O2SAT 98; BMI 28.0
--- NOTE | 2023-10-06 11:11 | MHC.PC.OV ---
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 Accompanied by: Self / Same As Patient Allergies environmental allergies Allergy (Unknown, Verified 10/06/23 11:11) Unknown Tobacco use date assessed: 12/28/22 Dental Screening Dental Screen Date: 10/06/23 Did you have a dental visit in the last 12 months?: Yes Did you have a dental problem in the last 6 months where you did not have access to dental care?: No Was dental information given to patient?: Patient has dentist HPI HPI Comments History of Present Illness Details 33-year-old female past medical history significant for insomnia, generalized anxiety disorder, depression, hypercholesteremia, GERD and migraines. Patient of Dr. Conner presents today for suture removal. Patient reports that she was cleaning on evening and she did not see a knife on the counter and had cut her her left thumb on the dorsum of her hand patient went to [facility] and had 4 sutures. Patient was recommended for suture removal 7-10 days after. For sutures removed from left on patient tolerated procedure well. Proximally 1 in laceration close edges well approximated, minimal surrounding erythema. No signs of infection or drainage at this time. [facility] Medical History Amenorrhea Chest pain Concern about STD in female without diagnosis Conjunctivitis Constipation by delayed colonic transit Dysuria CELIA (generalized anxiety disorder) Hx of conjunctivitis Insomnia Moderate recurrent major depression Physical exam Pure hypercholesterolemia Sore throat Weight loss Surgical History H/O colonoscopy Family History Father No problems noted. Mother No problems noted. Daughter No problems noted. Social History Housing: Apartment Alcohol intake: never Patient Tobacco Use Status: Never used Tobacco e-Cigarette/Vaping Use: Never Used Second Hand Smoke Exposure: No service: No Current occupational status: unemployed Current occupational exposures/hazards: No Gender identity: Female Cognitive needs: No Hearing needs: No Vision needs: Yes (glasses) Female Reproductive History Menstrual Age of Menarche: 11 Questionnaire Thrive Questionnaire Date Thrive assessed: 12/28/22 CELIA-7 AMB Questionnaire CELIA-7 Date CELIA - 7 assessed: 12/28/22 Source: Developed by Drs. Mulugeta Mai, Gerri Kaur, Moise Muñoz and colleagues, with an educational lorraine from [employer]. Review of Systems Card Reports no additional complaints Resp Reports no additional complaints Skin/Breast Details: For sutures noted to left thumb Physical exam (Primary Care) Vital Signs: Last Vital Signs Pulse 101 H 10/06/23 11:11 BP 122/82 10/06/23 11:11 Pulse Ox 98 10/06/23 11:11 Oxygen Delivery Method Room Air 10/06/23 11:11 BMI result Body Mass Index 28.0 Tobacco/Smoking Status: Tobacco use Status Tobacco use date assessed 12/28/22 10/06/23 11:17 Patient Tobacco Use Status Never used Tobacco 10/06/23 11:17 Tobacco use type 06/14/23 14:32 e-Cigarette/Vaping Use Never Used 10/06/23 11:17 Thrive Assessment: Date of Thrive Assessment Date Thrive assessed 12/28/22 10/06/23 11:17 Const General: cooperative and no acute distress Chest Chest palpation & inspection: normal inspection of the chest Resp Effort & Inspection: normal respiratory effort Auscultation: clear to auscultation bilaterally, no crackles, no rhonchi and no wheezes Cardio Rate: regular rate Rhythm: regular rhythm Heart sounds: S1 normal heart sound present and S2 normal heart sound present Peripheral pulses: dorsalis pedis present Extrem Hand/finger images: 1. Four sutures removed from left thumb. Edges well approximated, minimal erythema surrounding laceration no drainage or edema. Assessment and Plan Assessment & Plan (1) Encounter for removal of sutures: Code(s): Z48.02 - Encounter for removal of sutures Plan: Sutures removed from left thumb patient tolerated procedure well no signs and symptoms of infection patient advised to keep area clean and dry and open to air unless. Signs and symptoms reviewed with patient when to follow-up or seek medical attention. Coding Level of Care Code Est Pt Level 3 (49187) Diagnoses Encounter for removal of sutures Z48.02
== END 2023-10-06 11:44 | disposition home or self-care (01) ==
PROVIDERS: PCP Internal Medicine; Visit Provider Nurse Practitioner Family
DX: Z48.02 Encounter for removal of sutures (principal)
CPT/HCPCS: 15853; 99212

== ENCOUNTER 2023-10-25 08:51 | Outpatient (AMB) | payer OTHER, SELFPAY ==
--- NOTE | 2023-10-25 08:55 | A.OFFVIS_ITS ---
Intake Vital Signs 10/25/23 08:56 Height 5 ft 4 in Weight 163 lb BMI 28.0 BP 110/78 Blood Pressure Location Rt brachial Position Sitting Intake Visit Reasons: 3month f/u Headache - Confirmed Intake Note: Patient presents for 3 month follow up headache. my headaches getting better Allergies environmental allergies Allergy (Unknown, Verified 10/25/23 08:57) Unknown Medication List - Last Reconciled 10/25/23 by HANNAH Johnson alum-mag hydroxide-simeth 400-400-40 mg/5 mL (Maalox Maximum Strength) 10 mL PO TID PRN 7 days amoxicillin 500 mg PO Q8H 7 days escitalopram oxalate 5 mg PO DAILY levonorgestrel-ethinyl estrad 0.15 mg-30 mcg (91) 1 tab PO DAILY naproxen 500 mg PO BID omeprazole 20 mg PO DAILY 14 days rizatriptan 5 - 10 mg (0.5 - 1 x 10 mg) PO Q2H PRN 21 days HPI HPI Comments History of Present Illness Details 33-yr-old female presents for f/u visit. Pt denies any significant interval medical changes. She has started on Escitalopram recently, which is helping her anxiety and depression. She is seeing a therapist. She is having less migraines- now 1 time per week. Rizatriptan is helpful. [facility] Medical History Amenorrhea Chest pain Concern about STD in female without diagnosis Conjunctivitis Constipation by delayed colonic transit Dysuria CELIA (generalized anxiety disorder) Hx of conjunctivitis Insomnia Moderate recurrent major depression Physical exam Pure hypercholesterolemia Sore throat Weight loss Surgical History H/O colonoscopy Family History Father No problems noted. Mother No problems noted. Daughter No problems noted. Social History Housing: Apartment Alcohol intake: never Patient Tobacco Use Status: Never used Tobacco e-Cigarette/Vaping Use: Never Used Second Hand Smoke Exposure: No service: No Current occupational status: unemployed Current occupational exposures/hazards: No Gender identity: Female Cognitive needs: No Hearing needs: No Vision needs: Yes (glasses) Female Reproductive History Menstrual Age of Menarche: 11 Review of Systems Const All systems reviewed & are unremarkable except as noted in HPI and below Physical Exam Vital Signs: Last Vital Signs BP 110/78 10/25/23 08:56 BMI result Body Mass Index 28.0 Const General: cooperative and no acute distress Orientation/consciousness: patient oriented x3 HEENT Head: Yes normocephalic Resp Effort & Inspection: normal respiratory effort and able to speak in complete sentences Neuro General: patient oriented x3, gait normal and CN's II-XI intact bilaterally Cognition (Neuro): normal cognition Motor exam (neuro): 5/5 motor strength present throughout Psych Appearance: grossly normal Mental Status: mental status grossly normal Speech and movement: Normal speech and movement present Affect: normal affect Attitude: cooperative Thought process: Normal thought process present Thought content: Normal thought content present Insight: Good insight present (Psych) Judgement: Good judgement present (Psych) Assessment & Plan Assessment & Plan (1) Migraine with aura: Comment: flashing lights, tingling in fingers and feet. 06/14/2023 discussed with the patient immediately after the visit when this was noted in the chart. She is not clear what an aura is I asked her to discuss with Neurology was sent when she sees them next month and if they recommend stopping the OCPs ( combination) then she will call here and we will come up with another contraceptive plan for her. she does not perceive a connection between the headaches and the control pills. Code(s): G43.109 - Migraine with aura, not intractable, without status migrainosus (2) Sleep difficulties: Code(s): G47.9 - Sleep disorder, unspecified Plan Reviewed HST- no evidence for sleep apnea- AHI 0.7/hr and O2 richie 84% w/ average SpO2 96% and SpO2 < 90% x's < 1 min. Reviewed brain MRI- normal ? For overall headache management: Continue good self-care, including but not limited to maintaining a healthy diet, adequate fluid intake, adequate sleep, and engaging in regular physical activity. Monitor sleep- if worsens consider in-lab PSG/MSLT. Track headaches ? For acute headache treatment: Continue Rizatriptan 10mg tab, 1/2 - 1 tab (5-10mg) at onset of headache, may repeat in 2 hours. Max of 2 tabs (200mg) per 24 hours. May adjunct with OTC Tylenol 650mg q 4 hours, Ibuprofen (liquigel) 600mg q 6 hours, or Naproxen (liquigel) 440mg q 12 hrs prn. Previous acute migraine medication trials: Sumatriptan- some effect but not tolerated. Acute migraine medication contraindications: None at this time ? For headache prevention medication: Pt is not interested in starting at this time. Previous migraine prevention medication trials: None Migraine prevention medication contraindications: None ? Pt to follow-up in 6 months or sooner prn. Medications: Changed From rizatriptan max 2 tabs per day or 4 tabs per week 5 - 10 mg (0.5 - 1 x 10 mg) PO Q2H 21 days PRN 12 tabs 3RF migraine headache To rizatriptan max 2 tabs per day or 4 tabs per week 10 mg PO Q2H 21 days PRN 12 tabs 6RF migraine headache Coding Level of Care Code Est Pt Level 4 (36712) Diagnoses Migraine with aura G43.109 Sleep difficulties G47.9
[2023-10-25 08:56] VITALS: BP 110/78; BMI 28.0
== END 2023-10-25 09:48 | disposition home or self-care (01) ==
PROVIDERS: PCP Internal Medicine; Visit Provider Nurse Practitioner Family
DX: G43.109 Migraine with aura, not intractable, without status migrainosus (principal); G47.9 Sleep disorder, unspecified
CPT/HCPCS: 99214

== ENCOUNTER → 2023-10-25 08:51 | Outpatient (BNVA) | payer OTHER, SELFPAY | PROVIDERS: PCP Internal Medicine; Visit Provider Nurse Practitioner Family ==

== ENCOUNTER 2023-12-08 15:20 | Emergency (ER) | payer OTHER, SELFPAY ==
[2023-12-08 15:30] VITALS: BP 119/83; PULSE 112; RESP 16; TEMP 36.9; O2SAT 95; BMI 27.5
--- NOTE | 2023-12-08 15:31 | ED.GENADULT ---
HPI - General Adult General Chief complaint: Headache Stated complaint: migraine, meds dont work, and nausea Time Seen by Provider: 12/08/23 16:04 Source: patient Mode of arrival: ambulatory Limitations: no limitations History of Present Illness HPI narrative: 33y.o. F presents for migrine headache, R sided, onset at 14:00 and she took Rizatriptan which she states typically takes effect within 30 minutes, but it did not therefore she came to ED. Reports it is worsening, and has associated nausea. She does report nasal congestion but states that she has ?environmental allergies? does not believe she has been exposed any viral type illness. Reports feels consistent with prior migraine headaches. Denies fevers, chills, neck pain, neck stiffness, chest pain, shortness of breath, numbness or tingling of the extremities, Related Data Home Medications Medication Instructions Recorded Confirmed escitalopram oxalate 5 mg tablet 5 mg PO DAILY 10/06/23 10/25/23 Previous Rx's Medication Instructions Recorded aluminum-mag hydroxide-simethicone 10 ml PO TID PRN indigestion 7 03/15/23 400 mg-400 mg-40 mg/5 mL oral susp days #100 mL (Maalox Maximum Strength) omeprazole 20 mg capsule,delayed 20 mg PO DAILY 14 days #14 caps 03/15/23 release naproxen 500 mg tablet 500 mg PO BID #60 tabs 05/26/23 levonorgestrel 0.15 mg-ethinyl 1 tab PO DAILY #91 ea 06/14/23 estradiol 30 mcg tablets,3 mos pack(91) amoxicillin 500 mg capsule 500 mg PO Q8H 7 days #21 caps 10/16/23 rizatriptan 10 mg tablet 10 mg PO Q2H PRN migraine headache 10/25/23 21 days #12 tabs Allergies Allergy/AdvReac Type Severity Reaction Status Date / Time environmental allergies Allergy Unknown Unknown Verified 10/25/23 08:57 Review of Systems Review of Systems: Yes all other systems are reviewed and are negative PMFSH Past Medical History Attestation statement: The following information was validated with the patient. Source: old records reviewed Medical History Concern about STD in female without diagnosis Sore throat Pure hypercholesterolemia Dysuria Constipation by delayed colonic transit Weight loss CELIA (generalized anxiety disorder) Moderate recurrent major depression Physical exam Insomnia Chest pain Hx of conjunctivitis Conjunctivitis Amenorrhea Surgical History H/O colonoscopy Family History Family History Father No problems noted. Mother No problems noted. Daughter No problems noted. Social History Social History Housing: Apartment Alcohol intake: never Patient Tobacco Use Status: Never used Tobacco Smoked in Last 30 Days: No e-Cigarette/Vaping Use: Never Used Second Hand Smoke Exposure: No Use of substances other than those prescribed or required for medical reasons: No Advance Directives: No Advance Directives Information Provided: No service: No Current occupational status: unemployed Current occupational exposures/hazards: No Gender identity: Female Cognitive needs: No Hearing needs: No Vision needs: Yes (glasses) Physical Exam ED Vital Signs: Vital Signs - 24 hr 12/08/23 15:30 12/08/23 18:22 Temperature 98.4 F 98.3 F Pulse Rate 112 H 88 Respiratory Rate 16 16 Blood Pressure 119/83 101/56 L Pulse Oximetry 95 98 Oxygen Delivery Method Room Air Room Air BMI result Body Mass Index 27.5 Appearance: Alert.?Oriented to person, place and time. No acute distress.?Normal affect. Eyes: Pupils equal, round and reactive to light.? EOMI. No nystagmus. ENT: Pharynx normal.??TM normal bilaterally. Neck: Normal inspection.? Neck supple.??No nuchal rigidity. CVS: Heart sounds normal. Normal heart rate and rhythm.? Pulses normal.?? Respiratory: No respiratory distress.? Lung sounds clear to auscultation bilaterally?? Abdomen: Soft and non-tender. Normoactive bowel sounds. Skin: Skin warm and dry.? Normal skin color.? Normal skin turgor.?? Extremities: No lower extremity edema.? No calf ttp? Neuro: Moves all extremities spontaneously. Sensation intact bilaterally. CN II-XII intact. No focal neuro deficits. Ambulates with normal steady gait. Course Course Course Narrative: RME- 33 year old female presents for evaluation of headache and nausea. Symptoms started a few hours ago. She took Rizatriptan without any improvement. She had an unremarkable brain MRI in May of last year. She has no neuro deficits. Plan for basic labs with ESR and further evaluation Reevaluation(s) Reevaluation #1: Patient with a history of recurrent and or similar headache, there is no substantial change to typical headache pattern, there are no red flag symptoms, no focal neurological deficits, no high risk comorbidities, at this time feel that patient is stable for discharge home, migraine headache has resolved and she is requesting discharge. Time: 18:22 Medications Administered Discontinued Medications Generic Name Dose Route Start Last Admin Trade Name Freq PRN Reason Stop Dose Admin Diphenhydramine HCl 25 mg 12/08/23 16:23 12/08/23 16:35 Diphenhydramine Hcl 50 Mg/Ml Vial IVPUSH 12/08/23 16:24 25 mg ONCE ONE Administration Sodium Chloride 1,000 mls @ 999 mls/hr 12/08/23 16:30 12/08/23 18:28 Ns IV 12/08/23 17:30 Infused .Q1H1M JENNIFFER Infusion Ketorolac Tromethamine 30 mg 12/08/23 16:23 12/08/23 16:35 Ketorolac Tromethamine 30 Mg/Ml Vial IVPUSH 12/08/23 16:24 30 mg ONCE ONE Administration Metoclopramide HCl 10 mg 12/08/23 16:23 12/08/23 16:35 Metoclopramide Hcl 10 Mg/2 Ml Vial IVPUSH 12/08/23 16:24 10 mg ONCE ONE Administration Medical Decision Making Medical Decision Making MDM Narrative: Patient is a 33-year-old female with past medical history of migraine headache, GERD, hypercholesterolemia, anxiety, depression presenting to the emergency department for evaluation of migraine headache not responding to her home medications; rizatriptan. She is noted to be tachycardic with otherwise normal vital signs, notable nasal congestion but denies concern for URI stating that she has chronic allergies, will obtain viral testing. Plan to medicate with normal saline, Toradol, Reglan, and Benadryl for management of migraine. Consistent with prior migraines, no red flag symptoms. Differential diagnosis with presentation includes SDH, SAH, ICH, NUTRITIONISTS mass, meningitis, encephalitis, CVA, GCA, migraine, headache. History without concerning exposures, not exacerbated or worsened by exertion, no red flag symptoms, vision changes, under the age of 50, no new no compromising conditions, no focal neurological abnormalities. Differential Diagnosis Differential Diagnoses: The differential diagnosis associated with the presentation includes (SDH, SAH, ICH, NUTRITIONISTS mass, meningitis, encephalitis, CVA, GCA, migraine, headache) Admission/Observation Consideration of admission/observation: Escalation of care including admission/observation considered Lab Data MDM Lab Attestation statement: I reviewed the patient's lab results. CBC is without leukocytosis or anemia. BMP overall unremarkable. HCG negative. 12/08/23 16:04 12/08/23 16:04 Labs: Lab Results 12/08/23 12/08/23 12/08/23 Range/Units 16:04 16:48 17:40 WBC 7.0 (4.8-10.8) X10*3/uL RBC 4.64 (4.20-5.50) X10*6/uL Hgb 13.4 (12.0-16.0) g/dl Hct 39.5 (37.0-47.0) % MCV 85.1 (80.0-98.0) fL MCH 28.9 (27.0-33.0) pg MCHC 33.9 (31.0-35.0) g/dl RDW 13.0 (11.0-16.0) % Plt Count 419 H (160-400) X10*3/uL MPV 9.2 L (9.4-12.3) fL Immature Gran % (Auto) 0.1 (0.0-0.4) % Neut % (Auto) 52.3 (45-73) % Lymph % (Auto) 36.9 (20-40) % [place] % (Auto) 6.9 (2-11) % Eos % (Auto) 3.4 (0-4) % Baso % (Auto) 0.4 (0-2) % Lymph # (Auto) 2.6 (1.2-4.9) X10*3/uL [place] # (Auto) 0.5 (0.1-1.2) X10*3/uL Eos # (Auto) 0.2 (0.0-0.4) X10*3/uL Baso # (Auto) 0.0 (0.0-0.2) X10*3/uL Abs Immat Gran (auto) 0.01 (0.00-0.03) X10*3/uL Absolute Neuts (auto) 3.7 (2.0-8.3) x10*3/uL Absolute Nucleated RBC 0.000 (0.0-0.012) X10*3/uL Nucleated RBC % (auto) 0.0 (0.0-0.2) /100WBC ESR 6 (0-20) MM/HR Sodium 138 (135-145) mmol/L Potassium 3.9 (3.3-5.1) mmol/L Chloride 106 (96-108) mmol/L Carbon Dioxide 25 (22-29) mmol/L Anion Gap 11 L (12-20) BUN 9 (9-16) mg/dL Creatinine 0.80 (0.5-1.4) mg/dL Estim Creat Clear Calc 96.7 Estimated GFR > 60 Random Glucose 122 H (60-115) mg/dL Calcium 9.1 (8.4-10.2) mg/dL Beta HCG, Quant < 2 mIU/mL Urine Color Yellow Urine Appearance Clear Urine pH 7.5 (5.0-9.0) Ur Specific [place] <= 1.005 (1.005-1.025) Urine Protein Negative (Neg-Trace) mg/dL Urine Glucose (UA) Negative (Negative) mg/dL Urine Ketones Negative (Negative) mg/dL Urine Blood Negative (Negative) Urine Nitrite Negative (Negative) Ur Leukocyte Esterase Trace H (Negative) Urine RBC 0-2 (0-2) /HPF Urine WBC 0-5 (0-5) /HPF Ur Squamous Epith Cells 0-2 (0-2) /HPF Urine Bacteria None Seen (None Seen) Hyaline Casts 0-2 (0-2) /LPF COVID-19 (GAGE) Negative (Negative) COVID-19 Clin Com See Note External Record Review External record reviewed: Outpatient record Prescription Management I considered prescription management with: Pain Medication Critical Care Time Critical Care Time Critical Care Time: No Discharge Plan Discharge Clinical Impression: Migraine Patient Disposition: Home, Self-Care Instructions: Migraine Headache (ED) Additional Instructions: Continue taking your medications as prescribed Return back to emergency department any new or worsening symptoms or concerns. Prescriptions: No Action alum-mag hydroxide-simeth [Maalox Maximum Strength] 400-400-40 mg/5 mL suspension 10 ml PO TID PRN (Reason: indigestion) 7 Days Qty: 100 0RF omeprazole 20 mg capsule,delayed release(DR/EC) 20 mg PO DAILY 14 Days Qty: 14 0RF naproxen 500 mg tablet 500 mg PO BID Qty: 60 3RF amoxicillin 500 mg capsule 500 mg PO Q8H 7 Days Qty: 21 0RF escitalopram oxalate 5 mg tablet 5 mg PO DAILY levonorgestrel-ethinyl estrad 0.15 mg-30 mcg (91) tablets,dose pack,3 month 1 tab PO DAILY Qty: 91 4RF rizatriptan 10 mg tablet 10 mg PO Q2H PRN (Reason: migraine headache) 21 Days Qty: 12 6RF Rx Instructions: max 2 tabs per day or 4 tabs per week Referrals: Mayra Villafana MD [Primary Care Provider] - Interventions: ED Discharge Assessment Last Done: 12/08/23 18:59 Discharge Date/Time: 12/08/23 18:59
[2023-12-08 16:10] LABS: MANUAL DIFF FLAG NO
[2023-12-08 16:12] LABS: Basophils Percent Auto 0.4 % (0-2); Eosinophils Absolute Auto 0.2 X10*3/uL (0.0-0.4); Eosinophils Percent Auto 3.4 % (0-4); Hematocrit 39.5 % (37.0-47.0); Hemoglobin 13.4 g/dl (12.0-16.0); Imm Gran Abs Auto 0.01 X10*3/uL (0.00-0.03); Imm Gran Pct Auto 0.1 % (0.0-0.4); Lymphocytes Absolute Auto 2.6 X10*3/uL (1.2-4.9); Lymphocytes Percent Auto 36.9 % (20-40); Mean Corpuscular HGB Conc 33.9 g/dl (31.0-35.0); Mean Corpuscular Hemoglobin 28.9 pg (27.0-33.0); Mean Corpuscular Volume 85.1 fL (80.0-98.0); Mean Platelet Volume 9.2 fL (9.4-12.3); Monocytes Absolute Auto 0.5 X10*3/uL (0.1-1.2); Monocytes Percent Auto 6.9 % (2-11); Neutrophils Absolute Auto 3.7 x10*3/uL (2.0-8.3); Neutrophils Percent Auto 52.3 % (45-73); Platelet Count 419 X10*3/uL (160-400); Red Blood Count 4.64 X10*6/uL (4.20-5.50)
[2023-12-08 16:26] LABS: Anion Gap 11 (12-20); Blood Urea Nitrogen 9 mg/dL (9-16); Calcium 9.1 mg/dL (8.4-10.2); Carbon Dioxide 25 mmol/L (22-29); Chloride 106 mmol/L (96-108); Creatinine Clr Calc Pharmacy 96.7; Estimated Glomerular Filt Rate > 60; Glucose Random 122 mg/dL (60-115); Potassium 3.9 mmol/L (3.3-5.1); Sodium 138 mmol/L (135-145)
[2023-12-08] MEDS: Metoclopramide HCl 10 MG/2 ML VIAL IVPUSH (16:35)
[2023-12-08] MEDS: diphenhydrAMINE HCL 50 MG/ML VIAL 25 MG IVPUSH (16:35)
[2023-12-08] MEDS: 0.9 % Sodium Chloride 1,000 ML 999 ML IV (16:35)
[2023-12-08] MEDS: Ketorolac Tromethamine 30 MG/ML VIAL IVPUSH (16:35)
[2023-12-08 16:47] LABS: Erythrocyte Sedimentation Rate 6 MM/HR (0-20)
[2023-12-08 17:16] LABS: HCG Quantitative < 2 mIU/mL
[2023-12-08 17:36] LABS: COVID-19 Test Negative (Negative); IDNOW Serial# 08D9AD1C
[2023-12-08 17:47] LABS: Appearance Urine Clear; Color Urine Yellow; Glucose Urine UA Negative (Negative); Leukocyte Esterase Urine Trace (Negative); Nitrite Urine Negative (Negative); PH 7.5 (5.0-9.0); Specific Gravity - Urine <= 1.005 (1.005-1.025); UMIC TRIGGER UACC YES; Urine Blood Negative (Negative); Urine Ketones Negative (Negative); Urine Protein Negative (Neg-Trace)
[2023-12-08 17:49] LABS: Bacteria Urine None Seen (None Seen); Hyaline Casts Urine 0-2 /LPF (0-2); RBC Urine 0-2 /HPF (0-2); Squamous Epithelial Cell Urine 0-2 /HPF (0-2); WBC Urine 0-5 /HPF (0-5)
[2023-12-08 18:22] VITALS: BP 101/56; PULSE 88; RESP 16; TEMP 36.8; O2SAT 98
== END 2023-12-08 18:59 | disposition home or self-care (01) ==
PROVIDERS: Nurse Practitioner Family; Physician Assistant; Emergency Provider Student in an Organized Health Care Education/Training Program; PCP Internal Medicine
DX: G43.909 Migraine, unspecified, not intractable, without status migrainosus (principal); R00.0 Tachycardia, unspecified; R11.0 Nausea; R09.81 Nasal congestion; Z11.52 Encounter for screening for COVID-19; E78.00 Pure hypercholesterolemia, unspecified; Z79.899 Other long term (current) drug therapy
CPT/HCPCS: 36415; 80048; 81001; 84702; 85025; 85652; 87635; 96361; 96374; 96375; 99284; J1200; J1885; J2765

== ENCOUNTER 2024-03-06 12:17 | Outpatient (AMB) | payer OTHER, SELFPAY ==
--- NOTE | 2024-03-06 12:25 | A.OFFPC_ITS ---
Vital Signs 03/06/24 12:26 Height 5 ft 4 in Weight 159 lb BMI 27.3 BP 118/78 Blood Pressure Location Lt brachial Position Sitting Intake Visit Reasons: Annual Exam Intake Note: patient here for a physical exam Gluing Machine Feeder Required: No Accompanied by: Self / Same As Patient Allergies environmental allergies Allergy (Unknown, Verified 03/06/24 12:47) Unknown Medication List - Last Reconciled 03/06/24 by Mayra Llamas MD escitalopram oxalate 10 mg PO DAILY levonorgestrel-ethinyl estrad 0.15 mg-30 mcg (91) 1 tab PO DAILY propranolol 10 mg PO BID Tobacco use date assessed: 03/06/24 Dental Screening Dental Screen Date: 03/06/24 Did you have a dental visit in the last 12 months?: Yes Did you have a dental problem in the last 6 months where you did not have access to dental care?: No Was dental information given to patient?: Patient has dentist HPI HPI Comments History of Present Illness Details This is a 33-year-old female that comes for a physical exam. She has moderate recurrent major depression that has been somewhat stable with escitalopram. Still has a high PHQ-9 score but no suicidal ideation. Goes to counseling. Last Pap smear was 2021 and was normal with HPV negative. Migr aines are follow by Neurology. [facility] Medical History Concern about STD in female without diagnosis Sore throat Pure hypercholesterolemia Dysuria Constipation by delayed colonic transit Weight loss CELIA (generalized anxiety disorder) Moderate recurrent major depression Physical exam Insomnia Chest pain Hx of conjunctivitis Conjunctivitis Amenorrhea Surgical History H/O colonoscopy Family History Father No problems noted. Mother No problems noted. Daughter No problems noted. Social History Housing: Apartment Alcohol intake: never Patient Tobacco Use Status: Never used Tobacco e-Cigarette/Vaping Use: Never Used Second Hand Smoke Exposure: No service: No Current occupational status: employed Current occupational exposures/hazards: No Gender identity: Female Cognitive needs: No Hearing needs: No Vision needs: Yes (glasses) Female Reproductive History Menstrual Age of Menarche: 11 Questionnaire PHQ-9 Over the last 2 weeks, how often have you been bothered by any of the following problems? 1. Little interest or pleasure in doing things: several days 2. Feeling down, depressed, or hopeless: more than half the days 3. Trouble falling or staying asleep, or sleeping too much: more than half the days 4. Feeling tired or having little energy: nearly every day 5. Poor appetite or overeating: more than half the days 6. Feeling bad about yourself - or that you are a failure or have let yourself or your family down: several days 7. Trouble concentrating on things, such as reading the newspaper or watching television: nearly every day 8. Moving or speaking so slowly that other people could have noticed. Or the opposite - being so fidgety or restless that you have been moving around a lot more than usual: nearly every day 9. Thoughts that you would be better off or of hurting yourself in some way: not at all Total score: 17 Depression Screening Interpretation: Positive (no suicidal thoughts) Depression Screening Follow-up: Existing condition, In treatment, Community Mental Health Worker F/U and Follow-up Visit Requested Depression Screening Done: Yes 77416 - PHQ-9 Billing: Yes Source: Developed by Drs. Mulugeta Mai, Gerri Kaur, Moise Muñoz and colleagues, with an educational lorraine from [employer]. Thrive Questionnaire Date Thrive assessed: 03/06/24 I am a: Patient What is your living situation today?: I have a steady place to live Within the past 12 months, did the food you bought not last and you didn't have the money to get more?: Never true Within the past 12 months, did you worry whether your food would run out before you got money to buy more?: Never true Do you have trouble paying for medicines?: No Do you have trouble getting transportation to medical appointments?: No Do you have trouble paying your heating and electricity bill?: No Do you have trouble taking care of your child, family member or friend?: No Do you have trouble with day-to-day activities such as bathing, preparing meals, shopping, managing finances, etc.?: No Are you currently unemployed and looking for a job?: No Are you interested in more education?: No Please select the resources that you would like help with: None Currently or been in a relationship where the following occur: no concerns reported THRIVE Score: 0 AUDIT C Alcohol Use Questionnaire (AUDIT-C) 1. How often do you have a drink containing alcohol?: Never Total Score: 0 Score Reviewed/Action Taken: No CELIA-7 AMB Questionnaire CELIA-7 Date CELIA - 7 assessed: 03/06/24 Feeling nervous, anxious, or on edge: 3 = Nearly every day Not being able to stop or control worryin = Several days Worrying too much about different things: 3 = Nearly every day Trouble relaxin = Nearly every day Being so restless that it is hard to sit still: 1 = Several days Becoming easily annoyed or irritable: 1 = Several days Feeling afraid as if something awful might happen: 1 = Several days Total CELIA-7 score (0-4 normal; 5-9 mild; 10-14 moderate; 15-21 severe): 13 Source: Developed by Drs. Mulugeta Mai, Gerri Kaur, Moise Muñoz and colleagues, with an educational lorraine from [employer]. CELIA-7 Assessment Billing CELIA-7 Assessment Tool: CELIA-7 Assessment 06179 Review of Systems Const All systems reviewed & are unremarkable except as noted in HPI and below Eyes Reports no additional complaints, Denies change in vision and Denies other visual disturbances Card Denies chest pain at rest, Denies chest pain with activity, Denies edema, Denies irregular heart rhythm, Denies claudication, Denies dyspnea, Denies dyspnea on exertion, Denies orthopnea, Denies paroxysmal nocturnal dyspnea and Denies slow heart rate Resp Denies cough, Denies dyspnea and Denies dyspnea on exertion Psych Reports anxiety and Reports depression Physical exam (Primary Care) Vital Signs: Last Vital Signs BP 118/78 03/06/24 12:26 BMI result Body Mass Index 27.3 Tobacco/Smoking Status: Tobacco use Status Tobacco use date assessed 03/06/24 03/06/24 12:37 Patient Tobacco Use Status Never used Tobacco 03/06/24 12:37 Tobacco use type 06/14/23 14:32 e-Cigarette/Vaping Use Never Used 03/06/24 12:37 PHQ-9: PHQ-9 Score PHQ-9: Total score 17 03/06/24 12:37 Depression Screening Interpretation: Positive (no suicidal thoughts) Depression Screening Follow-up: Existing condition, In treatment, Community Mental Health Worker F/U and Follow-up Visit Requested Thrive Assessment: Date of Thrive Assessment Date Thrive assessed 03/06/24 03/06/24 12:37 Currently or been in a relationship where the following occur: no concerns reported Const Orientation/consciousness: patient oriented x3 [facility] Head: Yes normal to inspection, Yes normocephalic and Yes atraumatic Ears: external ears normal Eyes General: appearance normal, both eyes and all related structures Eyelids: Yes eyelids normal Conjunctivae: conjunctivae normal Neck Neck: Yes normal visual inspection and Yes supple Resp Effort & Inspection: normal respiratory effort Auscultation: clear to auscultation bilaterally Cardio Jugular venous distension: no JVD Rate: regular rate Rhythm: regular rhythm Heart sounds: S1 normal heart sound present and S2 normal heart sound present GI Inspection: Yes normal to inspection Palpation (GI): Soft to palpation and nontender Auscultation: normal bowel sounds Skin General skin exam: no rashes or lesions noted Neuro General: patient oriented x3 and no focal motor deficits Extrem General: Yes full ROM Psych Appearance: grossly normal Assessment and Plan Assessment & Plan (1) Physical exam: Code(s): Z00.00 - Encounter for general adult medical examination without abnormal findings Plan: Repeat in a year. (2) Moderate recurrent major depression: Code(s): F33.1 - Major depressive disorder, recurrent, moderate Plan: Continue escitalopram. Continue counseling. Orders: Orders FL upper GI series Today K21.9 - Gastro-esophageal reflux disease without esophagitis Medications: New omeprazole 20 mg PO DAILY 90 days 90 caps 1RF K21.9 - Gastro-esophageal reflux disease without esophagitis cetirizine 10 mg PO DAILY 90 days PRN 90 tabs 0RF allergy symptoms J30.9 - Allergic rhinitis, unspecified Coding Level of Care Code Est Pt Prev Care 18-39y(19493) Diagnoses Physical exam Z00.00 Moderate recurrent major depression F33.1 Additional Codes CELIA-7 Assessment Billing - CELIA-7 Assessment Tool: CELIA-7 Assessment 35949 ([id number]) Time Spent (min) 33
[2024-03-06 12:26] VITALS: BP 118/78; BMI 27.3
== END 2024-03-06 13:07 | disposition home or self-care (01) ==
PROVIDERS: PCP Internal Medicine; Visit Provider Internal Medicine
DX: Z00.00 Encounter for general adult medical examination without abnormal findings (principal); F33.1 Major depressive disorder, recurrent, moderate
CPT/HCPCS: 99395

== ENCOUNTER 2024-03-09 08:40 | Outpatient (REF) | payer OTHER, SELFPAY ==
--- NOTE | ~2024-03-09 | FL_ITS ---
EXAMINATION: XR FLUOROSCOPY UPPER GI WITH AIR CLINICAL INFORMATION: Gastroesophageal reflux. COMPARISON: None TECHNIQUE: Fluoroscopic air contrast upper GI examination was performed utilizing standard techniques with thin and thick barium and effervescent granules. Numerous spot images were obtained. Several fluoroscopic image hold cine sequences were also obtained. FINDINGS: Lateral cine images of the oropharynx and hypopharynx demonstrate normal swallow mechanism with normal epiglottic inversion and soft palate elevation. No tracheal penetration, glottic or subglottic aspiration identified. No nasopharyngeal reflux present. Hypopharyngeal structures appear normal without evidence of mass or diverticulum. There was no significant cricopharyngeal achalasia. Dual and single contrast images of the esophagus demonstrate normal caliber, contour, and mucosal pattern. No evidence of stricture, mass, or ulcerations identified. Esophageal peristalsis was normal. No evidence of hiatus hernia identified. Moderate gastroesophageal reflux was noted during the exam to the level of the thoracic inlet. Dual contrast and single contrast images of the stomach demonstrated normal contour and mucosal pattern without evidence of mass, ulceration, or other abnormality. Contrast freely passed into the gastric antrum and duodenal bulb without delay. Single and air-contrast images of the duodenal bulb demonstrate no abnormality. The duodenal sweep has a normal appearance, course, and mucosal fold appearance. No malrotation. The imaged proximal jejunum has a normal fold pattern and caliber. FLUOROSCOPY TIME: 4 minutes 21 seconds Number of Spot Images: 12 Number of cines obtained: 6 DOSE AREA PRODUCT: 2221 uGy-m2 (microgray-meter squared) FL/FL upper GI series IMPRESSION: Moderate spontaneous gastroesophageal reflux to the level of the thoracic inlet. Otherwise normal examination.
== END 2024-03-09 08:41 | disposition home or self-care (01) ==
LOC: HO.XRAY 08:40
PROVIDERS: PCP Internal Medicine; Visit Provider Internal Medicine
DX: K21.9 Gastro-esophageal reflux disease without esophagitis (principal)
CPT/HCPCS: 74240

== ENCOUNTER → 2024-03-09 08:41 | Outpatient (BNV) | payer OTHER, SELFPAY | PROVIDERS: PCP Internal Medicine; Visit Provider Radiology Diagnostic Radiology | DX: K21.9 Gastro-esophageal reflux disease without esophagitis (principal) | CPT/HCPCS: 74246 ==

== ENCOUNTER 2024-03-22 09:41 | Outpatient (REF) | payer OTHER, SELFPAY ==
[2024-03-25 08:53] LABS: TS Negative Control Passed; TS Panel A 0; TS Panel B 0; TS Positive Control Passed; TSpotTB Negative (Negative)
== END 2024-03-22 09:42 | disposition home or self-care (01) ==
LOC: HO.LAB 09:41
PROVIDERS: PCP Internal Medicine; Visit Provider Internal Medicine
DX: Z11.1 Encounter for screening for respiratory tuberculosis (principal)
CPT/HCPCS: 36415; 86481